=== PATIENT | male | born 1990 | race Caucasian/White ===

== ENCOUNTER 2018-10-07 00:07 | Emergency (ER) | payer BC ==
--- NOTE | 2018-10-07 09:12 | ULT ---
PRELIMINARY REPORT/[facility]/EMERGENCY AFTER HOURS PROCEDURE: EXAM: US Scrotum EXAM DATE/TIME: 10/07/2018 1:08 AM CLINICAL HISTORY: 28 years old, male; Pain; left testicular trauma. HX lt varicocele TECHNIQUE: Imaging protocol: Real-time ultrasound of the scrotum and contents with color Doppler and image docum entation. COMPARISON: No relevant prior studies available. FINDINGS: Right Testicle: 5.2 x 2.5 x 2.8 cm. Normal flow. No masses. Left Testicle: 4.7 x 2.7 x 3.4 cm. Normal flow. No masses. Epididymides: Each epididymis is normal in size and echogenicity. Scrotum: Small right hydrocele. No left hydrocele. Left varicocele. IMPRESSION: 1. Normal testicles with normal doppler flow to each testicle. No testicular torsion. 2. Small right hydrocele. 3. Left varicocele. Thank you for allowing us to participate in the care of your patient. Dictated and Authenticated by: Jerel Peralta MD 10/07/2018 2:05 AM Central Time ([place] & [place]) FINAL REPORT EMERGENCY AFTER HOURS SCROTAL ULTRASOUND WITH COLOR AND SPECTRAL DOPPLER IMAGING: Date: 10/07/18 Time: 0114 hours FINDINGS/IMPRESSION: Trace right-sided hydrocele. Evidence for left-sided varicocele. No intratesticular mass or testicula r torsion. Report in agreement with preliminary report given on-call by Rubi. POS: [facility]
== END 2018-10-07 02:12 | disposition home or self-care (01) ==
LOC: ERS 00:07
DX: N50.812 Left testicular pain (principal)
CPT/HCPCS: 76870; 93976